=== PATIENT | female | born 1930 | race Caucasian/White ===

== ENCOUNTER → 2017-10-17 | Outpatient (CLI) | payer MEDICARE, OTHER ==
[~2017-10-17] MED LIST: ARICEPT 5 MG TAB5 MG PO; ATORVASTATIN CA40 MG PO; BAYER CHEWABLE81 MG PO; CARAFATE 1 GM TA1 G1 PO; CEROVITE SENIO1 EACH PO; IRON325 PO; LEXAPRO 10 MG T10 M1 PO; MAPAP ARTHRITI650 MG PO; NEURONTIN 300300 M1 PO; OMEPRAZOLE40 MG PO; TUMS PO
== END ==
LOC: M.LAB 13:11
DX: C91.10 Chronic lymphocytic leukemia of B-cell type not having achieved remission (principal)

== ENCOUNTER 2018-01-08 03:48 | Emergency (ER) | payer MEDICARE, OTHER ==
[~2018-01-08] VITALS: Ht 170.2 cm; Wt 61.2 kg
[2018-01-08] MEDS ORDERED: NEURONTIN 300300 M1 PO (03:58)
[2018-01-08] MEDS ORDERED: IRON325 PO (03:58)
[2018-01-08] MEDS ORDERED: MAPAP ARTHRITI650 MG PO (03:59)
[2018-01-08] MEDS ORDERED: CARAFATE 1 GM TA1 G1 PO (04:00)
[2018-01-08] MEDS ORDERED: OMEPRAZOLE40 MG PO (04:00)
[2018-01-08] MEDS ORDERED: BAYER CHEWABLE81 MG PO (04:07)
[2018-01-08] MEDS ORDERED: ATORVASTATIN CA40 MG PO (04:07)
[2018-01-08] MEDS ORDERED: CEROVITE SENIO1 EACH PO (04:08)
[2018-01-08] MEDS ORDERED: ARICEPT 5 MG TAB5 MG PO (04:09)
[2018-01-08] MEDS ORDERED: LEXAPRO 10 MG T10 M1 PO (04:10)
[2018-01-08] MEDS ORDERED: TUMS PO (04:11)
[2018-01-08 04:24] LABS: HEMATOCRIT 37.7 % (37.0-47.0); HEMOGLOBIN 12.4 gm/dL (12.0-15.0); MCH 33.7 pg (26.0-34.0); MCHC 32.9 g/dL (28.0-37.0); MCV 102.5 fL (80.0-100.0); MPV 8.2 fl. (7.2-11.1); NUCLEATED RBCS 0 /100WBC; PLATELET COUNT* 117 thou/uL (150-400); RBC 3.68 mil/uL (4.20-5.00); RDW-CV 13.2 % (10.5-14.5); WBC 22.3 thou/uL (4.0-11.0)
[2018-01-08 04:35] LABS: CALCIUM 9.3 mg/dL (8.5-10.1); CREATININE 0.9 mg/dL (0.6-1.3); POTASSIUM 3.9 mmol/L (3.5-5.1)
[2018-01-08 04:40] LABS: ALBUMIN 3.6 g/dL (3.4-5.0); TOTAL BILIRUBIN 0.4 mg/dL (<0.1-1.0); TOTAL PROTEIN 6.5 g/dL (6.4-8.2)
[2018-01-08 05:35] LABS: URINE BILIRUBIN NEGATIVE (Negative); URINE BLOOD TRACE (Negative); URINE CLARITY CLEAR; URINE COLOR YELLOW; URINE GLUCOSE-RANDOM NEGATIVE (Negative); URINE KETONES NEGATIVE (Negative); URINE LEUKOCYTES-REFLEX NEGATIVE (Negative); URINE NITRITE-REFLEX NEGATIVE (Negative); URINE PROTEIN NEGATIVE (Negative); URINE SPECIFIC GRAVITY <= 1.005 (1.005-1.030); URINE UROBILINOGEN 0.2 E.U./dl (0.2-1.0)
[2018-01-08 05:48] LABS: ABSOLUTE EOSINOPHILS 0.2 thou/uL (0.0-0.7); ABSOLUTE LYMPHOCYTES 14.9 thou/uL (0.8-5.3); ABSOLUTE MONOCYTES 0.4 thou/uL (0.0-1.2); ABSOLUTE NEUTROPHILS 6.7 thou/uL (1.6-8.1); ANISOCYTOSIS 1+; PLATELET ESTIMATE DECREASED; POIKILOCYTOSIS 1+
[2018-01-08 07:54] VITALS: BP 153/68
== END 2018-01-08 07:57 | disposition home or self-care (01) ==
LOC: M.ERS 03:48
PROVIDERS: Emergency Medicine
DX: R19.7 Diarrhea, unspecified (principal); M19.90 Unspecified osteoarthritis, unspecified site; K21.9 Gastro-esophageal reflux disease without esophagitis; F41.9 Anxiety disorder, unspecified; Z88.0 Allergy status to penicillin

== ENCOUNTER 2018-07-31 12:38 | Emergency (ER) | payer MEDICARE, OTHER ==
[~2018-07-31] VITALS: Ht 170.2 cm; Wt 71.0 kg
[~2018-07-31 12:38] MED LIST changes: +FERROUS GLUCON324 M3 PO; -IRON325 PO
[2018-07-31] MEDS ORDERED: CEROVITE SENIO1 EACH PO (12:47)
[2018-07-31] MEDS ORDERED: PREDNISONE 20 M20 MG PO (12:49)
[2018-07-31] MEDS ORDERED: VITAMIN D-32000 UNIT PO (12:50)
[2018-07-31] MEDS ORDERED: TROSPIUM CHLORI20 MG PO (12:50)
[2018-07-31 13:39] LABS: URINE BILIRUBIN NEGATIVE (Negative); URINE BLOOD 1+ (Negative); URINE CLARITY CLEAR; URINE COLOR YELLOW; URINE GLUCOSE-RANDOM NEGATIVE (Negative); URINE KETONES NEGATIVE (Negative); URINE LEUKOCYTES-REFLEX 1+ (Negative); URINE NITRITE-REFLEX NEGATIVE (Negative); URINE PROTEIN NEGATIVE (Negative); URINE SPECIFIC GRAVITY <= 1.005 (1.005-1.030); URINE UROBILINOGEN 0.2 E.U./dl (0.2-1.0)
[2018-07-31 13:56] LABS: BACTERIA-REFLEX None Seen /HPF (None Seen); CASTS None Seen /LPF (None Seen); CRYSTALS None Seen /LPF (None Seen); MUCUS None Seen strn/LPF (None Seen); SQUAMOUS 0-3 Few /LPF (0-3); URINE RBC 0-2 Rare /HPF (0-2); URINE WBC-REFLEX 0-5 Rare /HPF (0-5)
[2018-07-31 14:03] LABS: HEMATOCRIT 39.3 % (37.0-47.0); HEMOGLOBIN 13.1 gm/dL (12.0-15.0); MCH 33.9 pg (26.0-34.0); MCHC 33.4 g/dL (28.0-37.0); MCV 101.7 fL (80.0-100.0); MPV 8.2 fl. (7.2-11.1); NUCLEATED RBCS 1 /100WBC; PLATELET COUNT* 125 thou/uL (150-400); RBC 3.86 mil/uL (4.20-5.00); RDW-CV 13.9 % (10.5-14.5); WBC 25.2 thou/uL (4.0-11.0)
[2018-07-31 14:10] LABS: CALCIUM 9.6 mg/dL (8.5-10.1); POTASSIUM 4.5 mmol/L (3.5-5.1)
[2018-07-31 14:15] LABS: ALBUMIN 3.9 g/dL (3.4-5.0); TOTAL BILIRUBIN 0.8 mg/dL (<0.1-1.0); TOTAL PROTEIN 6.6 g/dL (6.4-8.2)
[2018-07-31 14:36] LABS: ABSOLUTE BASOPHILS 0.5 thou/uL (0.0-0.2); ABSOLUTE EOSINOPHILS 0.3 thou/uL (0.0-0.7); ABSOLUTE LYMPHOCYTES 19.9 thou/uL (0.8-5.3); ABSOLUTE MONOCYTES 0.3 thou/uL (0.0-1.2); ABSOLUTE NEUTROPHILS 4.3 thou/uL (1.6-8.1); PLATELET ESTIMATE DECREASED
[2018-07-31 14:37] LABS: MACROCYTES 3+
[2018-07-31] MEDS ORDERED: LIDODERM1 EACH TRANSDERM (15:21)
[2018-07-31 16:52] VITALS: BP 164/71
== END 2018-07-31 16:53 | disposition home or self-care (01) ==
LOC: M.ERS 12:38
PROVIDERS: Nurse Practitioner Family
DX: M54.42 Lumbago with sciatica, left side (principal); F41.9 Anxiety disorder, unspecified; M19.90 Unspecified osteoarthritis, unspecified site; K21.9 Gastro-esophageal reflux disease without esophagitis; G30.9 Alzheimer's disease, unspecified; F02.80 Dementia in other diseases classified elsewhere, unspecified severity, without behavioral disturbance, psychotic disturbance, mood disturbance, and anxiety; G62.9 Polyneuropathy, unspecified; Z88.0 Allergy status to penicillin

== ENCOUNTER 2019-06-08 08:53 | Emergency (ER) | payer MEDICARE, OTHER ==
[~2019-06-08] VITALS: Ht 162.6 cm; Wt 71.3 kg
[~2019-06-08 08:53] MED LIST changes: +LIDODERM1 EACH TRANSDERM; +PREDNISONE 20 M20 MG PO; +TROSPIUM CHLORI20 MG PO; +VITAMIN D-32000 UNIT PO
[2019-06-08] MEDS ORDERED: CEROVITE SENIO1 EACH PO (09:21)
[2019-06-08] MEDS ORDERED: LEXAPRO 10 MG T10 M2 PO (09:22)
[2019-06-08] MEDS ORDERED: MUCINEX600 MG PO (09:23)
[2019-06-08] MEDS ORDERED: NORCO 5-325 TA1 EAC1 PO (09:24)
[2019-06-08] MEDS ORDERED: VITAMIN E1000 UNIT PO (09:24)
[2019-06-08 10:40] VITALS: BP 186/95
[2019-06-08 10:40] LABS: HEMOGLOBIN 13.7 gm/dL (12.0-15.0); MCH 33.7 pg (26.0-34.0); MCHC 33.4 g/dL (28.0-37.0); MCV 100.7 fL (80.0-100.0); NUCLEATED RBCS 0 /100WBC; PLATELET COUNT* 111 thou/uL (150-400); RBC 4.07 mil/uL (4.20-5.00); RDW-CV 13.8 % (10.5-14.5); WBC 21.3 thou/uL (4.0-11.0)
[2019-06-08 10:52] LABS: APTT 24.3 Seconds (25.0-31.3); CALCIUM 9.9 mg/dL (8.5-10.1); CREATININE 0.9 mg/dL (0.6-1.3); INR 1.1; POTASSIUM 4.4 mmol/L (3.5-5.1); PROTIME 10.9 Seconds (9.20-11.50)
[2019-06-08 10:57] LABS: ALBUMIN 4.1 g/dL (3.4-5.0); TOTAL PROTEIN 7.1 g/dL (6.4-8.2)
[2019-06-08 11:14] LABS: ABSOLUTE EOSINOPHILS 0.2 thou/uL (0.0-0.7); ABSOLUTE LYMPHOCYTES 18.1 thou/uL (0.8-5.3); ATYPICAL LYMPHS 78 %; MACROCYTES 2+; PLATELET ESTIMATE DECREASED
--- NOTE | 2019-06-09 17:04 | EKG ---
[place] [address] ELECTROCARDIOGRAM REPORT Name: NEENA ANGEL Room: [facility]#: [id number] Admission: 06/08/19 Attend Phys: Discharge: 06/08/19 Date of : 30 Report #: [id number] THIS REPORT FOR: //name// [facility] ED Test Date: 2019-06-08 Test Time: 10:22:29 Pat Name: NEENA ANGEL Department: Room: Gender: F Heading Pinner: : 1930 Requested By: Eric Montes Order Number: [id number] MD: Osman Mckeon Measurements Intervals [place] Rate: 55 P: 0 WA: 205 QRS: -30 QRSD: 104 T: 22 QT: 446 QTc: 427 Interpretive Statements Sinus bradycardia Abnormal R-wave progression, late transition Left ventricular hypertrophy No previous ECG available for comparison Electronically Signed On 06-09-2019 17:04:01 [employer] by Osman Mckeon [email or web address] <ELECTRONICALLY SIGNED> By: Osman Mckeon MD, [facility] 06/09/19 1704 1022 21 Osman Mckeon MD, FACC /EPI
== END 2019-06-08 10:40 | disposition short-term general hospital (02) ==
LOC: M.ERS 08:53
PROVIDERS: Family Medicine
DX: S12.490A Other displaced fracture of fifth cervical vertebra, initial encounter for closed fracture (principal); S01.81XA Laceration without foreign body of other part of head, initial encounter; F41.9 Anxiety disorder, unspecified; M19.90 Unspecified osteoarthritis, unspecified site; K21.9 Gastro-esophageal reflux disease without esophagitis; G62.9 Polyneuropathy, unspecified; Z88.0 Allergy status to penicillin; W06.XXXA Fall from bed, initial encounter; Y93.89 Activity, other specified; Y92.89 Other specified places as the place of occurrence of the external cause; Y99.8 Other external cause status